=== PATIENT | female | born 1960 | race Hispanic/Latino ===

== ENCOUNTER 2018-01-09 19:38 | Emergency (ER) | payer BC ==
[2018-01-09] MEDS ORDERED: DEXAMETHASONE SOD PHOSPHATE 10MG/ML 1ML VIAL ONE (20:05)
[2018-01-09] MEDS ORDERED: FAMOTIDINE 20MG TAB 20 MG TAB ONE (20:05)
[2018-01-09] MEDS ORDERED: DiphenhydrAMINE HCL 50 MG/ML VIAL ONE (20:05)
== END 2018-01-09 20:49 | disposition home or self-care (01) ==
LOC: EDH 19:38
DX: L24.9 Irritant contact dermatitis, unspecified cause (principal)
CPT/HCPCS: 96372 ×2; 99284; J1100; J1200

== ENCOUNTER 2019-01-29 19:36 | Emergency (ER) | payer BC, OTHER ==
[2019-01-29] MEDS ORDERED: ACETAMINOPHEN 325 MG TAB ONE (19:58)
== END 2019-01-29 21:43 | disposition home or self-care (01) ==
LOC: EDH 19:36
DX: S16.1XXA Strain of muscle, fascia and tendon at neck level, initial encounter (principal); V49.49XA Driver injured in collision with other motor vehicles in traffic accident, initial encounter; Y93.89 Activity, other specified; Y92.89 Other specified places as the place of occurrence of the external cause; Y99.8 Other external cause status
CPT/HCPCS: 72125